=== PATIENT | female | born 1965 | race Caucasian/White ===

== ENCOUNTER 2017-01-10 18:54 | Emergency (ER) | payer MEDICARE ==
[~2017-01-10 18:54] MED LIST: BACTRIM D.S. TAB1 EA PO; HUMIRA40 MG/0.8 INJ; NORCO 5-325 TA1 EACH PO; PRILOSEC40 MG PO
[2017-01-10 20:44] LABS: HEMOGLOBIN 14.5 gm/dl (12.3-15.3); RED BLOOD COUNT 4.4 M/UL (4.00-5.10); WHITE BLOOD COUNT 13.3 K/UL (4.5-11.0)
== END 2017-01-11 03:50 ==
LOC: ER1 18:54
PROVIDERS: Student in an Organized Health Care Education/Training Program
DX: K56.60 Unspecified intestinal obstruction (principal); N13.30 Unspecified hydronephrosis; E86.0 Dehydration; E87.1 Hypo-osmolality and hyponatremia; N28.9 Disorder of kidney and ureter, unspecified; F17.210 Nicotine dependence, cigarettes, uncomplicated
CPT/HCPCS: 36415; 71010; 80053; 83605; 83690; 85025; 87040; 93005; 96374; 96375; 96376; 99285; J0500; J1335; J2405; J7050

== ENCOUNTER → 2017-01-19 | Outpatient (CLI) | payer MEDICARE ==
[~2017-01-19] MED LIST changes: +CALTRATE 600MG600 MG PO; +FOSAMAX70 MG PO; +MULTIVITAMINS1 EAC1 PO; +POTASSIUM CHLO20 ME1 PO; +SODIUM CHLORIDE1 GM PO; +VITAMIN B12-FO1 EACH PO; +ZOFRAN4 MG PO
== END ==
LOC: LAB 10:04
DX: K50.90 Crohn's disease, unspecified, without complications (principal)
CPT/HCPCS: 36415

== ENCOUNTER 2017-04-19 19:24 | Inpatient (IN) | payer MEDICARE ==
[~2017-04-19] VITALS: Ht 162.6 cm; Wt 39.9 kg
[~2017-04-19 19:24] MED LIST changes: -CALTRATE 600MG600 MG PO; -FOSAMAX70 MG PO; -MULTIVITAMINS1 EAC1 PO; -POTASSIUM CHLO20 ME1 PO; -SODIUM CHLORIDE1 GM PO; -VITAMIN B12-FO1 EACH PO; -ZOFRAN4 MG PO
[2017-04-19 21:20] LABS: HEMOGLOBIN 13.9 gm/dl (12.3-15.3); RED BLOOD COUNT 4.08 M/UL (4.00-5.10)
[2017-04-19 21:45] LABS: BUN/CREATININE RATIO 119 (0-10)
[2017-04-20 00:06] LABS: BUN/CREATININE RATIO 135 (0-10)
[2017-04-20] MEDS ORDERED: MULTIVITAMINS1 EAC1 PO (00:17)
[2017-04-20] MEDS ORDERED: CALTRATE 600MG600 MG PO (00:17)
[2017-04-20] MEDS ORDERED: FOSAMAX70 MG PO (00:18)
[2017-04-20] MEDS ORDERED: VITAMIN B12-FO1 EACH PO (00:18)
[2017-04-20] MEDS ORDERED: ZOFRAN4 MG PO (00:24)
[2017-04-20 03:53] LABS: HEMOGLOBIN 12.9 gm/dl (12.3-15.3); RED BLOOD COUNT 3.9 M/UL (4.00-5.10)
[2017-04-20 03:56] LABS: WHITE BLOOD COUNT 9.2 K/UL (4.5-11.0)
[2017-04-20 04:05] LABS: BUN/CREATININE RATIO 137 (0-10)
[2017-04-20 12:25] LABS: BUN/CREATININE RATIO 114 (0-10)
[2017-04-20 15:57] LABS: BUN/CREATININE RATIO 104 (0-10)
[2017-04-20 19:02] LABS: BUN/CREATININE RATIO 142 (0-10)
[2017-04-22 06:16] LABS: HEMOGLOBIN 12.2 gm/dl (12.3-15.3); RED BLOOD COUNT 3.65 M/UL (4.00-5.10); WHITE BLOOD COUNT 9.9 K/UL (4.5-11.0)
[2017-04-22 06:33] LABS: BUN/CREATININE RATIO 75 (0-10)
[2017-04-24 13:34] LABS: HEMOGLOBIN 10.7 gm/dl (12.3-15.3)
[2017-04-24 21:33] LABS: HEMOGLOBIN 10.4 gm/dl (12.3-15.3)
[2017-04-25 01:16] LABS: HEMOGLOBIN 8.8 gm/dl (12.3-15.3)
[2017-04-25 05:24] LABS: HEMOGLOBIN 9.8 gm/dl (12.3-15.3)
[2017-04-25 05:45] LABS: BUN/CREATININE RATIO 53 (0-10)
[2017-04-26 03:16] LABS: HEMOGLOBIN 9.7 gm/dl (12.3-15.3); RED BLOOD COUNT 2.95 M/UL (4.00-5.10); WHITE BLOOD COUNT 7.9 K/UL (4.5-11.0)
[2017-04-26 03:32] LABS: BUN/CREATININE RATIO 48 (0-10)
[2017-04-26 20:39] LABS: BUN/CREATININE RATIO 40 (0-10)
[2017-04-27 06:08] LABS: HEMOGLOBIN 11.6 gm/dl (12.3-15.3); WHITE BLOOD COUNT 7.8 K/UL (4.5-11.0)
[2017-04-27 06:12] LABS: RED BLOOD COUNT 3.51 M/UL (4.00-5.10)
[2017-04-27 06:24] LABS: BUN/CREATININE RATIO 42 (0-10)
[2017-04-27] MEDS ORDERED: POTASSIUM CHLO20 ME1 PO (13:50)
[2017-04-27] MEDS ORDERED: SODIUM CHLORIDE1 GM PO (13:51)
== END 2017-04-27 15:57 | disposition home or self-care (01) | DRG 640 ==
LOC: ER1 19:24 → PROG CARE 22:15 → ZEROF 22:15 → PROG CARE 23:20 → M/S 04-26 20:20
PROVIDERS: Emergency Medicine; Internal Medicine; Internal Medicine Nephrology; ADMIT Internal Medicine
DX: E87.1 Hypo-osmolality and hyponatremia (principal); E43 Unspecified severe protein-calorie malnutrition; Z68.1 Body mass index [BMI] 19.9 or less, adult; E87.6 Hypokalemia; E83.42 Hypomagnesemia; E87.2 Acidosis; F17.200 Nicotine dependence, unspecified, uncomplicated; I95.89 Other hypotension; I10 Essential (primary) hypertension; Z93.2 Ileostomy status; Z90.49 Acquired absence of other specified parts of digestive tract; Z85.038 Personal history of other malignant neoplasm of large intestine; Z92.3 Personal history of irradiation
CPT/HCPCS: 36415; 36600; 71010; 80048; 80053; 81001; 82436; 82533; 82800; 82803; 82962; 83605; 83735; 83935; 84100; 84132; 84133; 84295; 84300; 84443; 84550; 85014; 85018; 85025; 85027; 87040; 93005; 99284; J0610; J1120; J1815; J3475; J3480; J7030